=== PATIENT | male | born 1955 | race Caucasian/White ===

== ENCOUNTER 2016-12-08 03:06 | Emergency (ER) | payer OTHER ==
[2016-12-08] MEDS ORDERED: METHYLPREDNISOLONE ACETATE 80 MG/ML VIAL IM ONE (03:31)
[2016-12-08] MEDS ORDERED: KETOROLAC TROMETHAMINE 60 MG/2 ML VIAL IM ONE ×2 (03:31→03:35)
[2016-12-08] MEDS ORDERED: DEXAMETHASONE SOD PHOSPHATE 10 MG/ML VIAL IM ONE (03:31)
[2016-12-08] MEDS ORDERED: METHYLPREDNISOLONE ACETATE 80 MG/ML VIAL ONE (03:35)
[2016-12-08] MEDS ORDERED: DEXAMETHASONE SOD PHOSPHATE 10 MG/ML VIAL ONE (03:35)
--- NOTE | 2016-12-08 03:36 | ERNOTE ---
Lower Extremity HPI - General Lower Extremities Pain: leg: right, thigh: right - pain Time Seen by Provider: 12/08/16 03:30 Source: patient Exam Limitations: no limitations - Immun/Allergies/Home Medications Immunizations: IMMUNIZATION HX Immunizations Up to Date Yes History of Influenza Vaccine No Hx Pneumococcal Vaccination No Allergies/Adverse Reactions: Allergies Allergy/AdvReac Type Severity Reaction Status Date / Time No Known Allergies Allergy Verified 12/08/16 03:15 Home Medications: HOME MEDICATIONS Ibuprofen 400 mg PO QID PRN 04/26/13 [Last Taken Unknown] Aspirin [Aspirin Chewable] 81 mg PO DAILY 07/02/13 [Last Taken Unknown] Methylprednisolone [Medrol Dosepak] 4 mg PO DAILY #21 tab.ds.pk 12/08/16 [Last Taken Unknown] Rosuvastatin Calcium [Crestor] 10 mg PO DAILY 12/08/16 [Last Taken Unknown] traMADol HCL [Ultram] 50 - 100 mg PO QID PRN #20 tab 12/08/16 [Last Taken Unknown] - History of Present Illness Narrative: Pt had onset of pain in his anterior right thigh down to his foot with some tingling in his toes a week ago. Occurred: last week Method of Injury: Reports: no apparent injury Modifying Factors - (Improves): Reports: other - nothing Modifying Factors - (Worsens): Reports: movement Subsequent Symptoms: Denies: sensory loss, numbness, motor loss, bowel/bladder problem Prior Treament: Reports: recently seen - by chiropractor x 3 this week without improvement Review of Systems - Review of Systems Constitutional: Absent: recent illness EYE: Present: no symptoms reported ENT: Present: no symptoms reported Respiratory: Absent: shortness of breath, cough Cardiology: Present: no symptoms reported Gastrointestinal/Abdominal: Present: no symptoms reported Genitourinary: Present: no symptoms reported Musculoskeletal: Present: See HPI Skin: Present: no symptoms reported Neurological: Present: See HPI Endocrine: Present: no symptoms reported Hematologic/Lymphatic: Present: no symptoms reported Psych: Present: no symptoms reported - Patient's Past Medical History Patient History - Medical: No pertinent hx Patient History - Cardiac/Respiratory: Hyperlipidemia Patient History - Cancer: No Hx of Cancer Patient History - Surgical Procedures: Colonoscopy, T & A, Hernia Repair, Orthopedic Patient History - Other: None - Social History Living Situations: spouse Abuse History: No History of abuse Psych History: No pertinent hx Smoking Status: Never smoker Have you smoked in the past 12 months: No Do you dip or chew tobacco: No Alcohol Use: none Drug Use: none - Immunizations Immunizations Up to Date: Yes Hx Pneumococcal Vaccination: No History of Influenza Vaccine: No Physical Exam - Physical Exam General Appearance: Present: wd/wn, alert, no apparent distress Head Exam: Present: normal inspection, no evidence of injury Neck: Present: normal inspection, nontender, supple Respiratory: Present: no respiratory distress, no accessory muscle use Back Exam: Present: normal inspection, no vertebral tenderness - No SI tenderness, decreased range of motion, muscle spasm Extremity Exam: Present: normal inspection, non-tender. Absent: calf tenderness , bony tenderness, joint redness, joint swelling Neurological Exam: Present: alert, oriented, normal mood/affect, no motor/ sensory deficits, search engine optimization strategist II-XII nml as tested, other - SLR pos right, neg left. Skin Exam: Present: normal color, warm/dry ED Progress - Vital Signs Patient's Vital Signs:: I have reviewed the patient's vital signs. Vital Signs: Vital Signs 12/08/16 03:09 Temperature 36.5 C Pulse Rate 71 Respiratory 16 Rate Blood Pressure 144/81 O2 Sat by Pulse 98 Oximetry - Progress/Reassessment Chief Complaint: Lower Extremity Pain/ Injury Departure Clinical Impression: Lumbar radiculitis - Departure Disposition: Home Follow Up Needed Condition: Good Instructions: Sciatica, [id number] Additional Instructions: Start prescription pack on Monday. Use pain meds as needed for pain. You may also use acetaminophen (tylenol) as needed. See your regular doctor in about a week to check on your progress. Referrals: Ruben Campbell DO [Primary Care Provider] - Prescriptions: Methylprednisolone [Medrol Dosepak] 4 mg PO DAILY #21 tab.ds.pk traMADol HCL [Ultram] 50 - 100 mg PO QID PRN #20 tab PRN Reason: Pain
[2016-12-08 04:06] VITALS: BP 129/73
== END 2016-12-08 04:04 | disposition home or self-care (01) ==
LOC: ER 03:06
DX: M54.16 Radiculopathy, lumbar region (principal); E78.5 Hyperlipidemia, unspecified